=== PATIENT | male | born 1975 | race Caucasian/White ===

== ENCOUNTER → 2018-01-23 | Outpatient (CLI) | payer BC | LOC: GMAL 12:19 | PROVIDERS: ATTEND Family Medicine | DX: Z00.00 Encounter for general adult medical examination without abnormal findings (principal) ==

== ENCOUNTER → 2018-02-13 | Outpatient (CLI) | payer BC | LOC: LAB.O 08:20 | PROVIDERS: ATTEND Family Medicine | DX: R53.82 Chronic fatigue, unspecified (principal); A69.20 Lyme disease, unspecified ==